=== PATIENT | female | born 1945 | race African-American/Black ===

== ENCOUNTER 2016-12-08 23:59 | Emergency (ER) | payer MEDICARE ==
[~2016-12-08] VITALS: Ht 185.4 cm; Wt 114.0 kg
[2016-12-09] MEDS ORDERED: SODIUM CHLORIDE 0.9% 1,000 ML IV ONE (00:29)
[2016-12-09] MEDS ORDERED: MORPHINE SULFATE 4 MG/ML CPJ (NOT FOR IM USE) IV STA (00:29)
[2016-12-09] MEDS ORDERED: ONDANSETRON HCL 4MG/2ML VIAL IV STA (00:29)
[2016-12-09] MEDS ORDERED: CEFAZOLIN 1000MG PREMIX 50 ML IV ONE (00:45)
[2016-12-09 01:06] LABS: EOSINOPHILS % 1.6 % (0.0-5.0); HEMATOCRIT. 26.9 % (36.0-48.0); HEMOGLOBIN. 8.9 g/dL (12.0-16.0); LYMPHOCYTES % 48.3 % (20.0-50.0); MEAN CORPUSCULAR HEMOGLOBIN 27.8 pg (28.0-32.0); MEAN CORPUSCULAR VOLUME 83.8 fL (81.0-99.0); MEAN PLATELET VOLUME 8.2 fl (7.4-10.4); NEUTROPHILS % 39.1 % (40.0-76.0); PLATELET 151 x1000/uL (130-400); RED BLOOD CELL COUNT 3.21 mill/uL (4.2-5.4); RED CELL DISTRIBUTION WIDTH 14.3 % (11.6-14.6)
[2016-12-09 01:12] LABS: INR 1.3
[2016-12-09 01:13] LABS: CHLORIDE 122 mEq/L (98-107)
[2016-12-09 01:20] LABS: HCG SCREEN NEGATIVE
[2016-12-09 01:22] LABS: CARBON DIOXIDE 20 mEq/L (21-32); ETHANOL BLOOD 152 mg/dL
[2016-12-09] MEDS ORDERED: KETAMINE HCL 50 MG/ML 10ML IV ONE (01:30)
[2016-12-09] MEDS ORDERED: PROPOFOL 200MG/20ML VIAL IV ONE (01:30)
[2016-12-09] MEDS ORDERED: GENTAMICIN 80MG PREMIX 100 ML IV ONE (02:45)
[2016-12-09] MEDS ORDERED: TETANUS, DIPHTHERIA, PERTUSSIS VAC/PF 0.5ML (>7YR OLD) IM ONE (02:45)
[2016-12-09 08:05] VITALS: BP 145/75
== END 2016-12-09 08:30 | disposition short-term general hospital (02) ==
LOC: ER 23:59 → EDBD 23:59 → ER 12-09 08:30
DX: S42.401B Unspecified fracture of lower end of right humerus, initial encounter for open fracture (principal); F10.129 Alcohol abuse with intoxication, unspecified; I10 Essential (primary) hypertension; W19.XXXA Unspecified fall, initial encounter; Y93.89 Activity, other specified; Y92.481 Parking lot as the place of occurrence of the external cause; Y99.8 Other external cause status
CPT/HCPCS: 24565; 36415; 70450; 72125; 73060; 73080; 80053; 84703; 85025; 85610; 86850; 86900; 86901; 90471; 90715; 96365; 96367; 96375; 99152; 99285; G0482; J0690; J1580; J2270; J2405; J3490; J7030; J2704